=== PATIENT | male | born 1960 | race Caucasian/White ===

== ENCOUNTER 2023-01-12 06:00 | Outpatient (RCR) | payer BC, SELFPAY | END 2023-01-23 23:59 | disposition home or self-care (01) | LOC: MPO 06:00 | PROVIDERS: Visit Provider Family Medicine | DX: R53.1 Weakness (principal) | CPT/HCPCS: 97162; 97166 ==

== ENCOUNTER 2023-01-24 06:00 | Outpatient (RCR) | payer BC, SELFPAY | END 2023-02-22 23:59 | disposition home or self-care (01) | LOC: MPO 06:00 | PROVIDERS: Visit Provider Family Medicine | DX: M62.81 Muscle weakness (generalized) (principal) | CPT/HCPCS: 97110; 97140; 97530 ==

== ENCOUNTER 2025-03-30 14:33 | Outpatient (CLI) | payer MEDICARE, SELFPAY ==
--- NOTE | 2025-03-30 15:15 | CT_ITS ---
WS: [id number] CT ABDOMEN AND PELVIS NONCONTRAST HISTORY: right flank pain, hx of kidney stones, hematuria TECHNIQUE: Imaging performed through the abdomen and pelvis. Coronal and sagittal reformats are submitted. All CT scans at [facility] use at least one of these dose optimization techniques: automated exposure control; mA and/or kV adjustment per patient size (includes targeted exams where dose is matched to clinical indication); or iterative reconstruction. DLP: 927.57 mGy.cm COMPARISON: None available. Lower thorax: Lung bases are clear. Visualized heart is normal. No hiatal hernia. Liver: Normal size liver. No mass or bile duct dilatation. Gallbladder: Normal gallbladder. No pericholecystic fluid or cholelithiasis. No gallbladder wall thickening. Pancreas: Normal size and attenuation. Normal pancreatic duct. No pancreatitis or mass. Spleen: Normal. Adrenal glands: Normal. No mass. Right kidney: 10.9 cm in length. No hydronephrosis. Nonobstructing 3 mm calcification lower pole. Mild perinephric stranding. No ureteral dilatation or calcification. Left kidney: Normal size kidney measuring 9.7 cm. Mild perinephric stranding. Nonobstructing 6 mm calcification lower pole. Normal size ureter. No ureteral calcification. Aorta: Mild atherosclerosis abdominal aorta with no aneurysm. No free fluid, intraperitoneal air or significant lymphadenopathy. GI tract: No obstruction or colitis. No appendicitis. Abdominal wall: Fat-containing umbilical hernia. Pelvis: Moderately well distended urinary bladder. Prostate gland encroaching into the base of the bladder. Bladder wall is inseparable from the prostate gland. Prostate is enlarged and heterogeneous. Osseous structures: Advanced degenerative changes in the lumbar spine. Prior fusion hardware from T12-L4. Anterior wedging of T11. CT/CT kidney stone [id number] IMPRESSION: 1. Bilateral nonobstructing renal calcifications. 2. No ureteral obstruction. 3. Prostate gland is enlarged encroaching into the base of the urinary bladder . 4. No GI tract obstruction. No mass or adenopathy.
== END 2025-03-30 14:34 | disposition home or self-care (01) ==
PROVIDERS: PCP Family Medicine; Visit Provider Family Medicine
DX: R10.11 Right upper quadrant pain (principal); N28.89 Other specified disorders of kidney and ureter; N40.0 Benign prostatic hyperplasia without lower urinary tract symptoms; R93.421 Abnormal radiologic findings on diagnostic imaging of right kidney; R93.422 Abnormal radiologic findings on diagnostic imaging of left kidney; I70.0 Atherosclerosis of aorta; K42.9 Umbilical hernia without obstruction or gangrene; R93.89 Abnormal findings on diagnostic imaging of other specified body structures; M47.896 Other spondylosis, lumbar region; Z98.1 Arthrodesis status; M48.54XA Collapsed vertebra, not elsewhere classified, thoracic region, initial encounter for fracture
CPT/HCPCS: 74176